=== PATIENT | female | born 1965 | race Caucasian/White ===

== ENCOUNTER 2019-10-14 14:21 | Emergency (ER) | payer BC, MEDICAID ==
[~2019-10-14] VITALS: Ht 177.8 cm; Wt 91.8 kg
--- NOTE | 2019-10-14 14:34 | NUR ---
patient arrives with fevers that began yesterday although none now, headache that began last night. she talked to tele doc through [facility] and they told her to come to er for her headache. she reports no cough. she reports no sob.
[2019-10-14] MEDS ORDERED: ESTR1CAP PO (14:48)
[2019-10-14] MEDS ORDERED: SODIUM CHLORIDE 0.9% 1,000ML IVBOLUS ONE (15:30)
[2019-10-14] MEDS ORDERED: SODIUM CHLORIDE FLUSH 10ML SYR IVF ONE (15:30)
[2019-10-14] MEDS ORDERED: KETOROLAC 30 MG/1 ML IVPush ONE (15:30)
[2019-10-14] MEDS ORDERED: DIPHENHYDRAMINE 50 MG/ML, 1ML IVPush ONE (15:30)
[2019-10-14] MEDS ORDERED: METOCLOPRAMIDE 5 MG/ML, 2ML IVPush ONE (15:30)
[2019-10-14 15:42] LABS: RAPID INFLUENZA A Negative (Negative); RAPID INFLUENZA B Negative (Negative)
[2019-10-14] MEDS ORDERED: KETOROLAC 30 MG/1 ML ONE (16:35)
[2019-10-14] MEDS ORDERED: DIPHENHYDRAMINE 50 MG/ML, 1ML ONE (16:43)
[2019-10-14] MEDS ORDERED: METOCLOPRAMIDE 5 MG/ML, 2ML ONE (16:43)
--- NOTE | 2019-10-14 16:47 | NUR ---
RETURNED FROM [facility]UN[facility], STARTED PATIENT IV, MEDICATED. GOT RX FROM OUTSIDE RESP TENT. PATIENT IN BED GETTING FLUIDS
[2019-10-14 17:16] VITALS: BP 155/78
--- NOTE | 2019-10-14 17:50 | NUR ---
patient states feeling improved and no headache. discharge instructions reviewed.
== END 2019-10-14 18:01 | disposition home or self-care (01) ==
LOC: ED 14:45
DX: R51 Headache (principal); Z20.828 Contact with and (suspected) exposure to other viral communicable diseases; R50.9 Fever, unspecified; R05 Cough; F17.200 Nicotine dependence, unspecified, uncomplicated
CPT/HCPCS: 87400; 96374; 96375; 99284; J1200; J1885; J2765; J7030

== ENCOUNTER 2020-11-20 12:24 | Day surgery (SDC) | payer BC ==
[2020-11-18 15:08] LABS: BASOPHILS % (AUTO) 0 % (0-1); EOSINOPHILS % (AUTO) 2 % (1-7); LYMPHOCYTES % (AUTO) 26 % (22-44); MEAN CORPUSCULAR HEMOGLOBIN 31.5 pg (27.0-34.8); MEAN PLATELET VOLUME 8.8 fL (7.4-10.4); MONOCYTES % (AUTO) 10 % (2-9); NEUTROPHILS % (AUTO) 63 % (42-75); PLATELET COUNT 289 x10^3/uL (130-400); RED BLOOD COUNT 4.65 x10^6/uL (3.82-5.3); RED CELL DISTRIBUTION WIDTH 13.2 % (9.6-15.2)
[2020-11-18 15:13] LABS: ALANINE AMINOTRANSFERASE 26 U/L (12-78); ALBUMIN 3.8 g/dL (3.4-5.0); ANION GAP 6 mmol/L (5-15); CHLORIDE 110 mmol/L (98-107); CREATININE 0.82 mg/dL (0.55-1.02)
[2020-11-18 15:18] LABS: ALKALINE PHOSPHATASE 75 U/L (45-117); BILIRUBIN,TOTAL 0.4 mg/dL (0.2-1.0); MD NO; TOTAL PROTEIN 7.5 g/dL (6.4-8.2)
[~2020-11-20] VITALS: Ht 175.3 cm; Wt 85.6 kg
[~2020-11-20 12:24] MED LIST: ALBU18HF INH; ESTR1CAP PO; ESTR1TAB4 PO; LISI5TAB7 PO; WHEA1POW5 PO
[2020-11-20] MEDS ORDERED: LACTATED RINGERS 1,000 ML IV SCH (13:00)
[2020-11-20 13:04] VITALS: BP 120/79
[2020-11-20] MEDS ORDERED: CHLORHEXIDINE 15 ML UDC PO ONE (13:30)
[2020-11-20] MEDS ORDERED: MIDAZOLAM 1 MG/ML, 2ML ONE (13:41)
[2020-11-20] MEDS ORDERED: FENTANYL PF 100 MCG/2ML ONE (13:41)
[2020-11-20] MEDS ORDERED: HYDROcodone/APAP 7.5-325MG/15ML UDC PO PRN (14:00)
[2020-11-20] MEDS ORDERED: MEPERIDINE/PF 25MG/0.5ML IVPush PRN (14:00)
[2020-11-20] MEDS ORDERED: ACETAMINOPHEN 325 MG TABLET PO PRN (14:00)
[2020-11-20] MEDS ORDERED: PROMETHAZINE 12.5 MG SUPP PR PRN (14:00)
[2020-11-20] MEDS ORDERED: OXYcodone 5 MG/5 ML ORAL.SOL UDC PO PRN (14:00)
[2020-11-20] MEDS ORDERED: HYDROmorphone 1 MG/ML, 1ML INJ IVPush PRN (14:00)
[2020-11-20] MEDS ORDERED: PROMETHAZINE 25 MG/ML, 1ML IVPush PRN (14:00)
[2020-11-20] MEDS ORDERED: FENTANYL PF 100 MCG/2ML IV PRN (14:00)
[2020-11-20] MEDS ORDERED: BUPIVACAINE/PF 0.25% ONE (14:02)
[2020-11-20] MEDS ORDERED: MEPERIDINE/PF 25MG/ML,1ML ONE (15:17)
== END 2020-11-20 16:47 | disposition home or self-care (01) ==
LOC: OUT 12:24
PROVIDERS: ATTEND Obstetrics & Gynecology
DX: N81.11 Cystocele, midline (principal); I10 Essential (primary) hypertension; J45.909 Unspecified asthma, uncomplicated; F17.200 Nicotine dependence, unspecified, uncomplicated; Z20.822 Contact with and (suspected) exposure to COVID-19; Z79.899 Other long term (current) drug therapy; Z82.49 Family history of ischemic heart disease and other diseases of the circulatory system; Z98.890 Other specified postprocedural states
CPT/HCPCS: 36415; 57240; 71046; 80053; 84702; 85025; 93005; J2250; J3010; J7120; U0003